=== PATIENT | male | born 1995 | race Caucasian/White ===

== ENCOUNTER 2020-05-28 20:27 | Emergency (ER) | payer BC ==
[2020-05-28] MEDS ORDERED: Atenolol 25 MG Tab PO ONE (20:51)
--- NOTE | 2020-05-28 20:55 | EDM.PDOC ---
ED HPI GENERAL MEDICAL PROBLEM - General Chief Complaint: General Stated Complaint: ENLARGED THYROID Time Seen by Provider: 05/28/20 20:30 Source of Information: Reports: Patient History Limitations: Reports: No Limitations - History of Present Illness INITIAL COMMENTS - FREE TEXT/NARRATIVE: History of present illness: [Patient is 24-year-old male with a history of hyperactive thyroid who presents to the ER in search of a refill for his atenolol. He states he was diagnosed several months ago while in [place], was prescribed his medication which has controlled his heart rate and his blood pressure and his symptoms overall and he states it has been effective for him. He ran out of the medication about a month ago and the palpitations and rapid heart rate and jitteriness have returned without it. He does not have any local follow-up here for his thyroid. He denies having had an ultrasound or other work-up beyond standard labs for his thyroid. Denies active chest pain, shortness of breath. States he has some palpitations with associated elevated heart rate, he says these feel typical and similar to previous episodes when he was not on the atenolol.] Review of systems: As per history of present illness and below otherwise all systems reviewed and negative. Past medical history: As per history of present illness and as reviewed below otherwise noncontributo ry. Surgical history: As per history of present illness and as reviewed below otherwise noncontributory. Social history: No reported history of drug or alcohol abuse. Family history: As per history of present illness and as reviewed below otherwise noncontributory. Physical exam: General: Awake, alert, no acute distress, A&O X3. HEENT: Atraumatic, normocephalic, pupils reactive, negative for conjunctival pallor or scleral icterus, mucous membranes moist, throat clear, neck supple, nontender, trachea midline. Lungs: Clear to auscultation, breath sounds equal bilaterally, chest nontender. Heart: tachycardic, normal S1S2, no JVD. Abdomen: Soft, nondistended, nontender. Negative for masses or hepatosplenomegaly. Negative for costovertebral tenderness. Pelvis: Stable nontender. Genitourinary: Deferred. Rectal: Deferred. Extremities: Atraumatic, no edema, Neurovascular unremarkable. Neuro: Motor and sensory grossly intact throughout. Exam nonfocal. Diagnostics: [] Therapeutics: [] Impression: [] Plan: [] Definitive disposition and diagnosis as appropriate pending reevaluation and review of above. Headache Pain Score (Numeric/FACES): 5 - Related Data Allergies Allergy/AdvReac Type Severity Reaction Status Date / Time No Known Allergies Allergy Verified 05/28/20 20:50 Home Meds: Home Meds atenoloL [Atenolol] 10 mg PO DAILY 05/28/20 [History] atenoloL [Atenolol] 25 mg PO DAILY #60 tablet 05/28/20 [Rx] ED ROS GENERAL - Review of Systems Review Of Systems: Comprehensive ROS is negative, except as noted in HPI. ED EXAM, GENERAL - Physical Exam Exam: See Below (see h and p) Course - Vital Signs Text/Narrative:: I offered the patient a work-up including labs here in the ED. He declined stating he would prefer just to get a refill on the medications and that he will follow-up in the outpatient setting to pursue further work-up. I provided him with outpatient resources and follow-up locally for him to manage the symptoms. I agreed to give him a prescription for atenolol and sent to the pharmacy electronically. Last Recorded V/S: Last Vital Signs Temp 36.5 C 05/28/20 20:44 Pulse 119 H 05/28/20 20:44 Resp 18 05/28/20 20:44 BP 159/95 H 05/28/20 20:44 Pulse Ox 97 05/28/20 20:44 - Orders/Labs/Meds Meds: Medications Discontinued Medications Generic Name Dose Route Start Last Admin Trade Name Lul PRN Reason Stop Dose Admin Atenolol 25 mg 05/28/20 20:51 Tenormin PO 05/28/20 20:52 ONETIME ONE Departure - Departure Time of Disposition: 21:01 Disposition: Home, Self-Care 01 Condition: Good Clinical Impression: Hyperthyroidism, Tachycardia - Discharge Information Prescriptions: atenoloL [Atenolol] 25 mg PO DAILY #60 tablet Instructions: Hyperthyroidism Referrals: PCP,None [Primary Care Provider] - Forms: ED Department Discharge Additional Instructions: Take all medications as prescribed. Follow-up with primary care doctor. Return to the ER with any new or worsening symptoms. The following information is given to patients seen in the emergency department who are being discharged to home. This information is to outline your options for follow-up care. We provide all patients seen in our emergency department with a follow-up referral. The need for follow-up, as well as the timing and circumstances, are variable depending upon the specifics of your emergency department visit. If you don't have a primary care physician on staff, we will provide you with a referral. We always advise you to contact your personal physician following an emergency department visit to inform them of the circumstance of the visit and for follow-up with them and/or the need for any referrals to a consulting specia list. The emergency department will also refer you to a specialist when appropriate. This referral assures that you have the opportunity for follow-up care with a specialist. All of these measure are taken in an effort to provide you with optimal care, which includes your follow-up. Under all circumstances we always encourage you to contact your private physician who remains a resource for coordinating your care. When calling for follow-up care, please make the office aware that this follow-up is from your recent emergency room visit. If for any reason you are refused follow-up, please contact the [facility] Emergency Department at and asked to speak to the emergency department charge nurse. [facility] [address] [place] [id number] [facility] [address] [place] [id number] Sepsis Event Note (ED) - Evaluation Sepsis Screening Result: No Definite Risk - Focused Exam Vital Signs: Vital Signs Temp Pulse Resp BP Pulse Ox 05/28/20 20:44 36.5 C 119 H 18 159/95 H 97
== END 2020-05-28 21:15 | disposition home or self-care (01) ==
LOC: MW.ED 20:27
DX: E05.90 Thyrotoxicosis, unspecified without thyrotoxic crisis or storm (principal); Z79.899 Other long term (current) drug therapy
CPT/HCPCS: 99284; A9270; 99282